=== PATIENT | male | born 1965 | race Caucasian/White ===

== ENCOUNTER → 2023-02-16 | Outpatient (CLI) | payer BC, OTHER ==
[~2023-02-16] MED LIST: GADOTERATE 0.5 MMOL/ML (CLARISCAN) 20 ML VIAL IV ONE; HYDR-1231 PO; SULF1TAB38 PO
--- NOTE | 2023-02-16 08:53 | Diagnostic Imaging Report ---
PROCEDURE: MR imaging of the brain with and without contrast. TECHNIQUE: Multiplanar, multisequence MR imaging of the brain was performed with and without contrast. INDICATION: Diplopia COMPARISON: None. FINDINGS: 7 mm T2 hyperintense nonenhancing lesion within the foramen of Mata (image 14 series 3). There is a associated mild enlargement of the right lateral ventricle. Minimal scattered T2/FLAIR hyperintense signal within the periventricular white matter is age-appropriate. No abnormal intracranial enhancement. No midline shift. The sella is normal. The expected flow voids are maintained. The globes and orbits are normal. The paranasal sinuses and mastoids are clear. 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 Mild associated enlargement of the right lateral ventricle. Recommend clinical correlation with any signs of hydrocephalus and neurosurgical evaluation. Findings discussed with Dr. Hernandez's nurse as she was unavailable at 8:48 AM. 02/16/2023. Dictated by: Dictated on workstation # [id number]
== END ==
LOC: RAD 07:35
PROVIDERS: ATTEND Ophthalmology
DX: H53.2 Diplopia (principal); H49.22 Sixth [abducent] nerve palsy, left eye; H50.05 Alternating esotropia; I51.7 Cardiomegaly
CPT/HCPCS: 70553